=== PATIENT | female | born 1965 | race Caucasian/White ===

== ENCOUNTER → 2017-10-02 | Outpatient (CLI) | payer OTHER ==
[~2017-10-02] MED LIST: ADDERALL 10 MG10 MG PO; BACTRIM DS TAB1 EACH PO; CENTRUM SILVER1 EAC4 PO; FLOMAX0.4 MG PO; MAGOX 400400 MG PO; SINGULAIR 10 MG10 M1 PO; SYNTHROID75 MCG PO; VITAMIN D1000 UNI1 PO
--- NOTE | ~2017-10-02 | EKG ---
[address] [place] [address] ELECTROCARDIOGRAM REPORT Name: WHIT CEDEÑO Room #: [facility] Stephanie#: [id number] Admission: 10/02/17 Attend Phys: Julian Wood MD Discharge: Date of : 61 Report #: [id number] THIS REPORT FOR: //name// [facility] Test Date: 2017-10-02 Test Time: 07:10:31 Pat Name: WHIT CEDEÑO Department: Room: Gender: F Content Editor: DES : 1965 Requested By: Julian Wood Order Number: [id number] MD: Gama Etienne Measurements Intervals [place] Rate: 79 P: 39 [place]: 123 QRS: 50 QRSD: 94 T: 48 QT: 386 QTc: 443 Interpretive Statements Sinus rhythm Atrial premature complexes Baseline wander in lead(s) V3 No previous ECG available for comparison Electronically Signed On 10-02-2017 7:54:31 CDT by Gama Etienne [email or web address] <ELECTRONICALLY SIGNED> By: Gama Etienne MD, [facility] 10/02/17 0754 [id number] 0710 Gama Etienne MD, FACC /EPI
== END ==
LOC: LITH 06:49
DX: N20.0 Calculus of kidney (principal); Z87.440 Personal history of urinary (tract) infections; Z98.890 Other specified postprocedural states; Z88.8 Allergy status to other drugs, medicaments and biological substances